=== PATIENT | male | born 1955 | race Caucasian/White ===

== ENCOUNTER 2017-10-30 11:37 | Inpatient (IN) ==
--- NOTE | 2017-10-30 11:52 | Emergency Department Note ---
Disposition Clinical Impression: CHF (congestive heart failure) Qualifiers: Heart failure type: unspecified Heart failure chronicity: unspecified Qualified Code(s): I50.9 - Heart failure, unspecified Acute kidney failure Qualifiers: Acute renal failure type: unspecified Qualified Code(s): N17.9 - Acute kidney failure, unspecified Disposition: Admitted As Inpatient Condition: Fair Time of Disposition: 14:09 General Adult HPI - General Chief complaint: ED Shortness of Breath/Dyspnea Stated complaint: Pulmonary Edema Time Seen by Provider: 10/30/17 11:43 Source: patient Mode of arrival: EMS Limitations: no limitations Nursing Notes Reviewed: Yes Vital Signs Reviewed: Yes - History of Present Illness HPI Narrative: 62-year-old male with history of diabetes, hypertension, CHF presents for evaluation of "fluid in his lungs". Patient states that he become increasing more fatigued and short of breath. Patient was evaluated [facility]. Patient also states that he was started back up on his Synthroid medications yesterday. Patient denies any chest pain. Patient denies any fevers or cough. Patient does note a proximally 20 pound weight gain over the past 24 hours. Notes lower leg swelling. Patient continues to urinate. Patient was transferred from the [facility] for further evaluation. Patient denies a history of stents. Patient states that when he was evaluated [facility] they told him that he had congestive heart failure but it was not that bad. - Related Data Home Medications Medication Instructions Recorded Confirmed Allopurinol [Zyloprim 100 MG] 200 mg PO DAILY 10/30/17 10/30/17 Amlodipine Besylate 10 mg PO DAILY 10/30/17 10/30/17 Carvedilol [Coreg] 6.25 mg PO BIDWM 10/30/17 10/30/17 Cholecalciferol (D-3) [Vitamin D] 5,000 unit PO DAILY 10/30/17 10/30/17 Clobetasol Propionate [Temovate] 1 appl TP SUSA 10/30/17 10/30/17 Colchicine [Mitigare] 0.6 mg PO BID 10/30/17 10/30/17 Doxycycline Hyclate 100 mg PO MOWEFR 10/30/17 10/30/17 Furosemide [Lasix] 20 mg PO BID 10/30/17 10/30/17 Furosemide [Lasix] 40 mg PO BID 10/30/17 10/30/17 Linagliptin [Tradjenta] 5 mg PO DAILY 10/30/17 10/30/17 Paroxetine HCl [Paxil] 40 mg PO DAILY 10/30/17 10/30/17 Rosuvastatin [Crestor] 20 mg PO HS 10/30/17 10/30/17 Tamsulosin [Flomax] 0.4 mg PO DAILY 10/30/17 10/30/17 Allergies Allergy/AdvReac Type Severity Reaction Status Date / Time No Known Allergies Allergy Verified 10/30/17 12:34 All systems ED: reviewed and negative except as stated. Constitutional: Denies: fever Cardiovascular: Denies: chest pain Respiratory: Reports: dyspnea. Denies: cough Gastrointestinal: Denies: abdominal pain, nausea, vomiting Past Medical History - Past Medical History Source: patient Physical Exam - General Limitations: no limitations General appearance: alert, in no apparent distress, obese - Head Head exam: atraumatic, normal inspection - Eye Eye exam: Present: normal appearance, EOMI - ENT ENT exam: normal exam, mucous membranes moist - Neck Neck exam: Present: normal inspection, trachea midline - Chest Chest inspection: Present: normal inspection, symmetric chest wall rise - Respiratory Respiratory exam: Present: other (diminished likely secondary to body habitus). Absent: respiratory distress - Cardiovascular Cardiovascular exam: Present: regular rate, normal rhythm. Absent: systolic murmur - Abdominal Exam Abdominal exam: Present: soft, Non-Tender - Extremities Exam Extremities exam: Present: normal inspection, pedal edema (2+) - Back Exam Back exam: Present: normal inspection. Absent: CVA tenderness (R), CVA tenderness (L) - Neurological Exam Neurological exam: Present: alert, oriented X3 - Skin Skin exam: Present: warm, dry, intact, normal color Course Course Narrative: Patient's records reviewed from the [facility]. At that facility the patient had a chest x-ray as well as basic labs. Those reviewed. Will add a TSH given the patient was restarted on her Synthroid. Disposition likely admission. Records from [facility] were also obtained and evaluated. Patient was offered admission at that facility however at that time the patient declined and felt comfortable with outpatient management however at this time the patient feels that he would like further evaluation and therapy as an inpatient. - Reevaluation(s) Reevaluation #1: Patient did receive 40 mg of Lasix IV at the [facility] prior to arrival. Time: 12:27 Vital Signs Temperature 97.8 F 10/30/17 11:43 Pulse Rate 68 10/30/17 11:43 Respiratory Rate 20 10/30/17 11:43 Blood Pressure 143/79 10/30/17 11:43 O2 Sat by Pulse Oximetry 94 10/30/17 11:43 Temperature 97.8 F 10/30/17 11:43 Pulse Rate 63 10/30/17 14:13 Respiratory Rate 20 10/30/17 12:51 Blood Pressure 170/84 10/30/17 14:13 O2 Sat by Pulse Oximetry 97 10/30/17 14:13 Oxygen Delivery Oxygen Delivery Nasal Cannula Medical Decision Making - MDM Narrative Medical decision making narrative: Patient seen and examined. Patient presents for concerns of increasing fatigue. Patient was evaluated multiple facilities prior to arrival concerns for pulmonary edema and congestive heart failure. Patient's chest x-ray was suggestive of possible pericardial effusion. Patient does not have any pericardial Physiology That Would Warrant Any Median Echo. Patient Would Benefit from Diuresis As Well As Echo and Continued Evaluation. Patient Does Not Have Any Infectious Symptoms. Pneumonia Is Less and antibioticts Were Not Initiated in the ED. Patient Also Does Not Clinically Have Any Pulmonary Embolism Risk Factors and Also Is Less Likely. Patient's BNP is not severe elevated however to be falsely low given the patient's bmi - Lab Data Lab results reviewed: Yes I reviewed the patient's lab results. Result diagrams: 10/30/17 12:49 10/30/17 12:49 Lab Results 10/30/17 10/30/17 10/30/17 Range/Units 12:49 12:49 12:49 WBC 8.7 (4.3-11.1) K/mcL RBC 5.20 (4.19-5.50) M/mcL Hgb 17.1 H (12.9-16.9) g/dL Hct 49.1 (37.5-50.1) % MCV 94.4 (83.0-100.0) fL MCH 32.9 (28.0-33.3) pg MCHC 34.8 (31.6-35.5) g/dL RDW 13.1 (11.5-14.5) % Plt Count 156 (140-400) K/mcL MPV 9.1 L (9.4-12.4) fL Immature Gran % 0.3 (0-4) % Seg Neutrophils % 80.8 % Lymphocytes % 8.7 % Monocytes % 6.5 % Eosinophils % 2.9 % Basophils % 0.8 % Neutrophils # 7.0 (1.6-8.9) K/mcL Lymphocytes # 0.8 (0.6-4.6) K/mcL Monocytes # 0.6 (0.0-1.3) K/mcL Eosinophils # 0.3 (0.0-0.6) K/mcL Basophils # 0.1 (0.0-0.2) K/mcL PT 11.2 (9.4-12.1) Seconds INR 1.0 APTT 34.8 (26.0-36.0) Seconds Sodium 137 (136-145) mEq/L Potassium 4.1 (3.5-5.1) mEq/L Chloride 97 L (98-107) mEq/L Carbon Dioxide 30 H (23-29) mEq/L BUN 27 H (8-23) mg/dL Creatinine 1.88 H (0.70-1.30) mg/dL Est GFR ( Amer) 45 L (> 60) Est GFR (Non-Af Amer) 37 L (> 60) BUN/Creatinine Ratio 14 (6-26) Glucose 127 H (70-105) mg/dL Calculated Osmolality 291 (280-300) Lactic Acid (0.5-2.2) mmol/L Calcium 9.9 (8.6-10.3) mg/dL Troponin I < 0.03 (< 0.04) ng/mL B-Natriuretic Peptide (Less than 100) pg/mL TSH 152.020 H (0.340-5.600) mcIU/mL 10/30/17 10/30/17 Range/Units 12:49 12:49 WBC (4.3-11.1) K/mcL RBC (4.19-5.50) M/mcL Hgb (12.9-16.9) g/dL Hct (37.5-50.1) % MCV (83.0-100.0) fL MCH (28.0-33.3) pg MCHC (31.6-35.5) g/dL RDW (11.5-14.5) % Plt Count (140-400) K/mcL MPV (9.4-12.4) fL Immature Gran % (0-4) % Seg Neutrophils % % Lymphocytes % % Monocytes % % Eosinophils % % Basophils % % Neutrophils # (1.6-8.9) K/mcL Lymphocytes # (0.6-4.6) K/mcL Monocytes # (0.0-1.3) K/mcL Eosinophils # (0.0-0.6) K/mcL Basophils # (0.0-0.2) K/mcL PT (9.4-12.1) Seconds INR APTT (26.0-36.0) Seconds Sodium (136-145) mEq/L Potassium (3.5-5.1) mEq/L Chloride (98-107) mEq/L Carbon Dioxide (23-29) mEq/L BUN (8-23) mg/dL Creatinine (0.70-1.30) mg/dL Est GFR ( Amer) (> 60) Est GFR (Non-Af Amer) (> 60) BUN/Creatinine Ratio (6-26) Glucose (70-105) mg/dL Calculated Osmolality (280-300) Lactic Acid 0.8 (0.5-2.2) mmol/L Calcium (8.6-10.3) mg/dL Troponin I (< 0.04) ng/mL B-Natriuretic Peptide 20 (Less than 100) pg/mL TSH (0.340-5.600) mcIU/mL - Radiology Data Radiology results reviewed: Yes I reviewed the patient's radiology results. Chest X-Ray 10/30/17 11:45 IMPRESSION: Enlarged cardiac/pericardial silhouette. Pericardial effusion cannot be excluded. Question of volume loss or infiltrate left lung base with some fluid in the left pleural space. PA and lateral chest or chest CT would prove helpful for further assessment. D/ / 10/30/2017 12:15:50 Azam Mccabe MD / kathleen Interpreting Provider: Azam Mccabe MD - EKG Data EKG #1 EKG attestation: Yes I reviewed and interpreted this EKG. EKG shows normal: sinus rhythm Rate: normal Rhythm: NSR Voltage: decreased voltage throughout Q waves: v2 Interpretation: no acute changes, nonspecific ST-T wave changes Ernesto - Ernesto Situation: Demographics Background: Presenting Complaint Assessment: Vital Signs, Course and respsone to treatment, Patient/Family Expectation Recommendation: Barrier(s) to disposition, Recommendation based on pending studies, treatments, or consults Ernesto Report Given to: Dr. Galen Orozco Repor Time: 14:09 Attestation Statement - Attestation Attestation: Patient was seen with resident physician. I reviewed the history, physical, assessment and plan, and agree with the findings. I also personally evaluated this patient and had [id number] time with this patient. 62-year-old male presents emergency Department chief complaint short of breath. Patient has history of same. Was seen at [facility] yesterday. Was offered admission but declined. Sitting rather get some testing as an outpatient. He has a history of CHF and that is what he was diagnosed with. His chores breath got worse today which [facility] evaluation they sent him here for further evaluation and treatment. Reports by EMS reports that the patient received possibly some Lasix, and had a negative troponin. Patient himself says he just feels more short of breath and says he is feels like he is moving slower than usual. She has also had some increased swelling in his lower extremities. Denies chest pain or abdominal pain. Review of systems as above remainder negative. Physical exam vital signs are stable. ENT is unremarkable. Heart regular rhythm and rate. Lungs I could not hear any crackles but there is more air movement on the right side than on the left side. No increased work of breathing. Abdomen is obese and nontender. Extremities swelling bilaterally and symmetrically in the lower extremities. Neurologically intact without focal deficits. Skin RASHES. Psych normal. ED course we will complete a workup for CHF. We will try and determine if the patient got the [facility] the [facility] or not. If not we will administer here. Anticipate we will be calling the hospitalist service to arrange for admission when she was initial workup is complete. Hemodynamically he remained stable while in the emergency department. Chest x-ray showed effusion with possible pericardial effusion as well. There was no medical signs of pericardial tamponade. There is no clinical signs of pneumonia at this time. Patient would benefit from additional workup as an inpatient. Hospitalist service was notified and agreed to accept the patient. Agree with resident physician assessment and plan.
[2017-10-30 13:03] LABS: Basophils # 0.1 K/mcL (0.0-0.2); Basophils % 0.8 %; Eosinophils # 0.3 K/mcL (0.0-0.6); Eosinophils % 2.9 %; Hematocrit 49.1 % (37.5-50.1); Hemoglobin 17.1 g/dL (12.9-16.9); Immature Granulocytes % 0.3 % (0-4); Lymphocytes # 0.8 K/mcL (0.6-4.6); Lymphocytes % 8.7 %; Mean Corpuscular HGB Conc 34.8 g/dL (31.6-35.5); Mean Corpuscular Hemoglobin 32.9 pg (28.0-33.3); Mean Corpuscular Volume 94.4 fL (83.0-100.0); Mean Platelet Volume 9.1 fL (9.4-12.4); Monocytes # 0.6 K/mcL (0.0-1.3); Monocytes % 6.5 %; Platelet Count 156 K/mcL (140-400); Red Cell Distribution Width 13.1 % (11.5-14.5); Segmented Neutrophils % 80.8 %
[2017-10-30 13:10] LABS: Prothrombin Time 11.2 Seconds (9.4-12.1)
[2017-10-30 13:12] LABS: Activated Partial Thrombo Time 34.8 Seconds (26.0-36.0)
[2017-10-30 13:32] LABS: BUN/Creatinine Ratio 14 (6-26); Blood Urea Nitrogen 27 mg/dL (8-23); Calcium 9.9 mg/dL (8.6-10.3); Carbon Dioxide 30 mEq/L (23-29); Chloride 97 mEq/L (98-107); Glucose 127 mg/dL (70-105); Osmolality,Calculated 291 (280-300); Potassium 4.1 mEq/L (3.5-5.1); Sodium 137 mEq/L (136-145); Troponin I < 0.03 ng/mL (< 0.04); eGFR For Non-African Americans 37 (> 60)
--- NOTE | 2017-10-30 17:13 | Internal Med History&Physical ---
Date of Encounter: 10/30/17 Time of Encounter: 14:00 Internal Medicine - H&P: HPI Chief complaint: shortness of breath Admitted From: Hospital to Hospital Transfer Plans for Post Hospital Care: Home History of present illness: Patient is a 62-year-old male with past medical history significant for CHF, CKD stage III, hypertension, diabetes, hypothyroid and mood disorder who presents as a transfer from the [facility] to [facility] ER on 10/30/17 due to her failure and uncontrolled hypothyroidism. Patient reports that he presented to the [facility] due to shortness of breath with exertion and weight gain in addition to bilateral lower extremity swelling. Patient reports also of feeling fatigue with slow mentation and decided to go to the ER for evaluation. At [facility] ER, patient was found to have BNP of 152 and a TSH of 152. Patient was also found to have a creatinine of 1.88 with a GFR 37. CXR shows questionable pericardial effusion. Patient will be admitted to medical surgical floor for heart failure exacerbation and uncontrolled hypothyroid. Past Med Surg Social Fam HX - Past Medical History Medical history: cancer, CHF, coronary artery disease, diabetes, hyperlipidemia , hypertension, renal disease, thyroid disease, other Additional medical history: Thyroid Cancer. Sleep apnea Psychiatric history: PTSD - Social History Smoking Status: Never smoker Alcohol use: heavy Drug use: none - Family History Mother Hx Family Cardiac Disorders: Yes Internal Medicine - H&P: Meds Allopurinol [Zyloprim 100 MG] 200 mg PO DAILY 10/30/17 [History] Amlodipine Besylate 10 mg PO DAILY 10/30/17 [History] Carvedilol [Coreg] 6.25 mg PO BIDWM 10/30/17 [History] Cholecalciferol (D-3) [Vitamin D] 5,000 unit PO DAILY 10/30/17 [History] Clobetasol Propionate [Temovate] 1 appl TP SUSA 10/30/17 [History] Colchicine [Mitigare] 0.6 mg PO BID 10/30/17 [History] Doxycycline Hyclate 100 mg PO MOWEFR 10/30/17 [History] Furosemide [Lasix] 20 mg PO BID 10/30/17 [History] Furosemide [Lasix] 40 mg PO BID 10/30/17 [History] Linagliptin [Tradjenta] 5 mg PO DAILY 10/30/17 [History] Paroxetine HCl [Paxil] 40 mg PO DAILY 10/30/17 [History] Rosuvastatin [Crestor] 20 mg PO HS 10/30/17 [History] Tamsulosin [Flomax] 0.4 mg PO DAILY 10/30/17 [History] 3 Allergy/AdvReac Type Severity Reaction Status Date / Time No Known Allergies Allergy Verified 10/30/17 12:34 All Systems PM: A 10-system review of systems was performed and is negative for pertinent findings except as documented above in the HPI. - Constitutional Vitals: Temp Pulse Resp BP Pulse Ox 97.4 F L 68 16 149/75 94 10/30/17 15:15 10/30/17 15:15 10/30/17 15:15 10/30/17 15:15 10/30/17 15:30 General appearance: Present: A&O X 3, no acute distress - Eye Eye exam: Present: normal appearance - ENT ENT exam: Present: mucous membranes moist - Respiratory Respiratory exam: Present: CTAB. Absent: accessory muscle use, rales, rhonchi, wheezes - Cardiovascular Cardiovascular exam: Present: RRR, +S1, +S2. Absent: diastolic murmur, gallop, rubs, systolic murmur - GI/Abdominal GI/Abdominal exam: Present: normal bowel sounds, soft, no peritoneal signs. Absent: distended, tenderness - Extremities Exam Extremities exam: Absent: pedal edema - Neurological Exam Neurological exam: Present: CN II-XII intact, oriented X3, no focal deficits. Absent: pronater drift, facial droop, speech deficit - Psychiatric Psychiatric exam: Present: normal mood - Skin Skin exam: Present: normal color Internal Med - H&P Results - Labs CBC & Chem 7: 10/30/17 12:49 10/30/17 12:49 - Assessment and plan (1) CHF (congestive heart failure) Current Visit: Yes Status: Acute Assessment and plan: At [facility] ER, patient was found to have BNP of 152 and CXR shows questionable pericardial effusion. Will order echocardiogram. Will also start patient on IV Lasix 80 mg twice daily Cardiology consulted and appreciate any additional recommendations Qualifiers: Heart failure type: unspecified Heart failure chronicity: unspecified Qualified Code(s): I50.9 - Heart failure, unspecified (2) Hypothyroid Current Visit: Yes Status: Acute Assessment and plan: At [facility] ER, patient was found to have a TSH of 152. Patient reports that his Synthroid was discontinued due to receiving radiation therapy for history of thyroid cancer Will restart patient on Synthroid. Qualifiers: Hypothyroidism type: unspecified Qualified Code(s): E03.9 - Hypothyroidism , unspecified (3) Acute renal failure Current Visit: Yes Status: Acute Assessment and plan: Patient also found to have an elevated creatinine of 1.88 and GFR 37 Patient does report of being diagnosis with CKD stage 3; no records for baseline creatinine Will continue to monitor with IV diuresis Qualifiers: Acute renal failure type: unspecified Qualified Code(s): N17.9 - Acute kidney failure, unspecified (4) EtOH dependence Current Visit: Yes Status: Acute Assessment and plan: Patient reports of drinking approximately a 6 pack per day Qualifiers: Complication of substance-induced condition: uncomplicated Qualified Code(s ): F10.220 - Alcohol dependence with intoxication, uncomplicated (5) Diabetes Current Visit: Yes Status: Acute Assessment and plan: Will obtain A1c; coverage with sliding-scale Qualifiers: Chronic kidney disease stage: unspecified stage Qualified Code(s): E08.22 - Diabetes mellitus due to underlying condition with diabetic chronic kidney disease; 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
[2017-10-30] MEDS ORDERED: Naloxone 0.4 MG/ML INJ IVP PRN (17:37)
[2017-10-30] MEDS: Furosemide 80 MG in 0.9 % Sodium Chloride 50 ML IVPB SCH (21:17)
[2017-10-30] MEDS: Colchicine 0.6 MG TABLET PO SCH (21:17)
[2017-10-30] MEDS: CLOBETASOL PROPIONATE 15 GM TUBE TP SCH (22:44)
[2017-10-30 23:33] LABS: Estimated Average Glucose 151 mg/dl; Hemoglobin A1C 6.9 %
[2017-10-31 04:30] LABS: Basophils # 0.1 K/mcL (0.0-0.2); Basophils % 0.6 %; Eosinophils # 0.2 K/mcL (0.0-0.6); Eosinophils % 2.2 %; Hematocrit 45.1 % (37.5-50.1); Hemoglobin 15.1 g/dL (12.9-16.9); Immature Granulocytes % 0.7 % (0-4); Immature Platelets 1.9 % (1.1-6.1); Lymphocytes # 0.7 K/mcL (0.6-4.6); Lymphocytes % 7.8 %; Mean Corpuscular HGB Conc 33.5 g/dL (31.6-35.5); Mean Corpuscular Hemoglobin 31.7 pg (28.0-33.3); Mean Corpuscular Volume 94.5 fL (83.0-100.0); Mean Platelet Volume 9.5 fL (9.4-12.4); Monocytes # 0.7 K/mcL (0.0-1.3); Monocytes % 8.1 %; Platelet Count 171 K/mcL (140-400); Red Blood Count 4.77 M/mcL (4.19-5.50); Red Cell Distribution Width 13.2 % (11.5-14.5); Segmented Neutrophils % 80.6 %
[2017-10-31 04:56] LABS: Calcium 9.4 mg/dL (8.6-10.3); Chol/HDL Ratio 2.2 (0-4.9); Potassium 4.4 mEq/L (3.5-5.1)
[2017-10-31] MEDS: Cholecalciferol (D-3) 1,000 UNIT TABLET PO SCH (08:19)
[2017-10-31] MEDS: Colchicine 0.6 MG TABLET PO SCH ×2 (08:20→20:21)
[2017-10-31] MEDS: amLODIPine 5 MG TABLET PO SCH (08:20)
--- NOTE | 2017-10-31 09:31 | Internal Med Progress Note ---
Hospitalist Progress Note - Encounter Date of Encounter: 10/31/17 Time of Encounter: 09:00 - Subjective Interval History: Called to bedside this morning by nurse for concerns that patient is having a CVA. Upon arrival at the bedside, patient appeared to have slow cognition and initially was not following commands. However during neurological exam, no neurological deficits noted and patient without any bilateral upper or lower extremity weakness and patient was able to follow commands. Patient however did not communicate much. There is no documented last well known time. He was found to have a TSH on admission of 152. Will order head CT for initiation of CVA rule out followed by MRI. - Exam Vitals: Temp Pulse Resp BP Pulse Ox 97.6 F 74 16 151/82 91 10/31/17 07:59 10/31/17 07:59 10/31/17 07:59 10/31/17 07:59 10/31/17 07:59 Exam: Gen.: Nonacute distress, alert and oriented 3 ENT: Mucosal membranes moist Respiratory: Lungs are clear to auscultation bilaterally without any wheezing rhonchi or rales Cardiovascular: Normal S1 and S2 regular rate rhythm no murmurs rubs or gallops Abdomen: Soft, nontender and nondistended with positive bowel sounds Extremities: Patient with bilateral lower extremity edema with pitting Skin: Normal color Neurological exam: Patient with slow speech and mentation but does have elevated TSH Cranial nerves 2 through 12 grossly intact Patient without any bilateral upper or lower extremity weakness and sensation intact Patient able to stand with assistance - Assessment and Plan (1) CHF (congestive heart failure) Current Visit: Yes Status: Acute Assessment and Plan: At [facility] ER, patient was found to have BNP of 20 but has a BMI of 60 and CXR shows questionable pericardial effusion. Patient with bilateral lower extremity edema and reports a significant weight gain. Will order echocardiogram. Will continue IV Lasix 80 mg twice daily until echocardiogram results known Cardiology consulted and appreciate any additional recommendations (2) Hypothyroid Current Visit: Yes Status: Acute Assessment and Plan: At [facility] ER, patient was found to have a TSH of 152. Patient reports that his Synthroid was discontinued due to receiving radiation therapy for history of thyroid cancer Will continue Synthroid 125 g daily (3) Acute renal failure Current Visit: Yes Status: Acute Assessment and Plan: Patient also found to have an elevated creatinine: 1.88->1.96 Patient does report of being diagnosis with CKD stage 3; no records for baseline creatinine Will continue to monitor with IV diuresis (4) EtOH dependence Current Visit: Yes Status: Acute Assessment and Plan: Patient reports of drinking approximately a 6 pack per day (5) Diabetes Current Visit: Yes Status: Acute Assessment and Plan: Will obtain A1c; coverage with sliding-scale (6) Mood disorder Current Visit: Yes Status: Acute Assessment and Plan: Continue home medications (7) DVT prophylaxis Current Visit: Yes Status: Acute Assessment and Plan: Lovenox subcutaneous - Time Spent with Patient Total time spent is greater than 50% in coordination of care (as documented) at patient's floor/unit and/or counseling patient: Internal Medicine: Result - Labs CBC & Chem 7: 10/31/17 03:53 10/31/17 03:53 Labs: Short CBC 10/31/17 Range/Units 03:53 WBC 8.6 (4.3-11.1) K/mcL Hgb 15.1 D (12.9-16.9) g/dL Hct 45.1 (37.5-50.1) % Plt Count 171 (140-400) K/mcL Neutrophils # 7.0 (1.6-8.9) K/mcL BMP 10/31/17 03:53 Sodium 136 Potassium 4.4 Chloride 97 L Carbon Dioxide 32 H BUN 28 H Creatinine 1.96 H Glucose 163 H Calcium 9.4 - ABG Interpretation ABG results: PT/INR, D-dimer PT 11.2 Seconds (9.4-12.1) 10/30/17 12:49 - Impressions Impressions Head CT 10/31/17 08:43 IMPRESSION: No acute intracranial abnormality. D/ / Deven Walls MD / Deven Walls MD Interpreting Provider: Deven Walls MD Consult Discharge Plan - Plan Referrals: Romeo Ansari [Primary Care Provider] - (1) CHF (congestive heart failure) Qualifiers: Heart failure type: unspecified Heart failure chronicity: unspecified Qualified Code(s): I50.9 - Heart failure, unspecified (2) Hypothyroid Qualifiers: Hypothyroidism type: unspecified Qualified Code(s): E03.9 - Hypothyroidism, unspecified (3) Acute renal failure Qualifiers: Acute renal failure type: unspecified Qualified Code(s): N17.9 - Acute kidney failure, unspecified (4) EtOH dependence Qualifiers: Complication of substance-induced condition: uncomplicated (5) Diabetes Qualifiers: Chronic kidney disease stage: unspecified stage
[2017-10-31] MEDS: Furosemide 80 MG in 0.9 % Sodium Chloride 50 ML IVPB SCH ×2 (10:10→20:19)
[2017-10-31] MEDS: *HR* Enoxaparin 40 MG/0.4 ML SYRINGE SQ SCH (10:42)
--- NOTE | 2017-10-31 11:31 | Cardiology Consult Note ---
<Figueroa Conley - Last Filed: 10/31/17 11:32> Date of Encounter: 10/31/17 Time of Encounter: 11:30 Assessment and Plan (1) Thyroid cancer Current Visit: Yes Status: Chronic Per Cardiology: Per patient history of thyroid cancer and recently completed radiation treatments last week. TSH in the 150s. Further management per primary service. (2) SOB (shortness of breath) Current Visit: Yes Status: Chronic Per Cardiology: Patient with reported history of CHF, however no previous records available for review. Current echo pending. BNP only noted to be 20. Chest x-ray showed: IMPRESSION: Enlarged cardiac/pericardial silhouette. Pericardial effusion cannot be excluded. Question of volume loss or infiltrate left lung base with some fluid in the left pleural space. PA and lateral chest or chest CT would prove helpful for further assessment. Suspect multifactorial causes. On Lasix drip per primary service. Clinically reports improvement. I&O +58ml. Will initiate strict I&O, daily weights, 2 L fluid restriction. Further recommendations pending echo. (3) Renal insufficiency Current Visit: Yes Status: Acute Per Cardiology: Chronic COPD versus acute kidney injury. Previous baseline kidney function unknown area and monitored closely with diuresis. Consider nephrology consult if warranted. (4) Dizziness Current Visit: Yes Status: Acute Per Cardiology: Telemetry reviewed with no events noted, sinus rhythm. Head CT showed: IMPRESSION: No acute intracranial abnormality. Discussion w patient/family: The assessment and plan as outlined above was discussed with the patient who expressed understanding and agreement. All questions were answered. Thank you for involving us in the care of your patient. Please call with any questions. History of Present Illness Consult date: 10/31/17 Requesting physician: Dat Shipley Consult reason: SOB Chief complaint: SOB History of present illness: Previous medical records reviewed-- no prior medical records noted. "Patient is a 62-year-old male with past medical history significant for CHF, CKD stage III, hypertension, diabetes, hypothyroid and mood disorder who presents as a transfer [place] the [place] to [facility] ER on 10/30/17 due to her failure and uncontrolled hypothyroidism. Patient reports that he presented to the [place] due to shortness of breath with exertion and weight gain in addition to bilateral lower extremity swelling. Patient reports also of feeling fatigue with slow mentation and decided to go to the ER for evaluation. At [facility] ER, patient was found to have BNP of 152 and a TSH of 152. Patient was also found to have a creatinine of 1.88 with a GFR 37. CXR shows questionable pericardial effusion". Cardiology consult for shortness of breath and concerns of CHF. Patient reports has expressed generalized lower extremity swelling and edema for many years. Reports short of breath at rest and exertion over the past one year. He reports past day or so short of breath has worsened so he was seen in the ER at [facility]. He reports given option of admission or outpatient follow-up. He did not get admitted. [facility]and transferred to [place]. He reports short of breath has improved during stay. He denies any chest pain or palpitations. Reports recently completed last round of radiation about one week ago for thyroid cancer. He denies any past history of CAD reports heart catheterization about one year ago at [facility] with no stenting. He does report history of CHF. Denies any pacemaker or ICD. He denies any active bleeding or blood loss. He also reports had some episodes of dizziness with difficulty "thinking". Denies any other concerns or complaints today. Past Med Surg Social Fam HX - Past Medical History Medical history: cancer, CHF, coronary artery disease, diabetes, hyperlipidemia , hypertension, renal disease, thyroid disease, other Additional medical history: Thyroid Cancer. Sleep apnea Psychiatric history: PTSD - Social History Smoking Status: Never smoker Alcohol use: heavy Drug use: none - Family History Mother Hx Family Cardiac Disorders: Yes Medications and Allergies Allopurinol [Zyloprim 100 MG] 200 mg PO DAILY 10/30/17 [History] Amlodipine Besylate 10 mg PO DAILY 10/30/17 [History] Carvedilol [Coreg] 6.25 mg PO BIDWM 10/30/17 [History] Cholecalciferol (D-3) [Vitamin D] 5,000 unit PO DAILY 10/30/17 [History] Clobetasol Propionate [Temovate] 1 appl TP SUSA 10/30/17 [History] Colchicine [Mitigare] 0.6 mg PO BID 10/30/17 [History] Doxycycline Hyclate 100 mg PO MOWEFR 10/30/17 [History] Furosemide [Lasix] 20 mg PO BID 10/30/17 [History] Furosemide [Lasix] 40 mg PO BID 10/30/17 [History] Linagliptin [Tradjenta] 5 mg PO DAILY 10/30/17 [History] Paroxetine HCl [Paxil] 40 mg PO DAILY 10/30/17 [History] Rosuvastatin [Crestor] 20 mg PO HS 10/30/17 [History] Tamsulosin [Flomax] 0.4 mg PO DAILY 10/30/17 [History] 3 Allergy/AdvReac Type Severity Reaction Status Date / Time No Known Allergies Allergy Verified 10/30/17 12:34 All Systems Review: The remainder of the systems were reviewed and are negative - Constitutional Constitutional: fatigue - Cardiovascular Cardiovascular: as per HPI, dyspnea at rest, dyspnea on exertion, leg edema - Neurological Neurological: dizziness Physical Examination Vital Signs, Last 4 Hours Temp Pulse Resp BP Pulse Ox 10/31/17 08:20 91 10/31/17 07:59 97.6 F 74 16 151/82 91 General: Conversant, No Apparent Distress HEENT: Atraumatic, Normocephaly, Mucus Membranes Moist Neck: No JVD, Normal carotid pulses Cardiac: Reg Rate and Rhythm, Normal S1 and S2, No Murmur Lungs: Normal Breath Sounds, No Wheeze, Rales, Rhonchi, Other (diminshed throughout) Neuro: Alert and responsive, No focal deficits noted Abdomen: Soft, Non-Tender, Other (morbidly obese) Skin: No rashes noted on visualized skin Musculoskeletal: No Chest Wall Tenderness Extremities: No Clubbing, No Cyanosis, Normal Pulses, Other (+3 generalized LE edema) Results 10/31/17 03:53 10/31/17 03:53 Lab Results Laboratory Tests 10/30/17 10/30/17 10/30/17 12:49 12:49 12:49 INR 1.0 Creatinine Est GFR (Non-Af Amer) Hemoglobin A1c Troponin I < 0.03 B-Natriuretic Peptide 20 LDL Cholesterol, Calc TSH 152.020 H 10/30/17 10/31/17 17:41 03:53 INR Creatinine 1.96 H Est GFR (Non-Af Amer) 35 L Hemoglobin A1c 6.9 H Troponin I B-Natriuretic Peptide LDL Cholesterol, Calc 51 TSH ITS Impressions Chest X-Ray 10/30/17 11:45 IMPRESSION: Enlarged cardiac/pericardial silhouette. Pericardial effusion cannot be excluded. Question of volume loss or infiltrate left lung base with some fluid in the left pleural space. PA and lateral chest or chest CT would prove helpful for further assessment. D/ / 10/30/2017 12:15:50 Azam Mccabe MD / kathleen Interpreting Provider: Azam Mccabe MD Head CT 10/31/17 08:43 IMPRESSION: No acute intracranial abnormality. D/ / Deven Walls MD / Deven Walls MD Interpreting Provider: Deven Walls MD Active Medications Allopurinol (Zyloprim) 200 mg PO DAILY [facility] Stop: 05/02/18 09:01 Last Admin: 10/31/17 08:19 Dose: 200 mg Amlodipine Besylate (Norvasc) 10 mg PO DAILY [facility] Stop: 05/02/18 09:01 Last Admin: 10/31/17 08:20 Dose: 10 mg Carvedilol (Coreg) 6.25 mg PO BIDWM [facility] PRN Reason: Protocol Stop: 05/02/18 08:01 Last Admin: 10/31/17 08:20 Dose: 6.25 mg Clobetasol Propionate (Temovate 0.05%) 1 appl TP SUSA [facility] Stop: 05/01/18 17:46 Last Admin: 10/30/17 22:44 Dose: Not Given Colchicine (Colcrys) 0.6 mg PO BID [facility] Stop: 05/01/18 21:01 Last Admin: 10/31/17 08:20 Dose: 0.6 mg Enoxaparin Sodium (Lovenox) 40 mg SQ 0600 [facility] PRN Reason: Protocol Stop: 05/02/18 10:31 Last Admin: 10/31/17 10:42 Dose: 40 mg Furosemide 80 mg/ Sodium (Chloride) 58 mls @ 100 mls/hr IVPB BID [facility] Stop: 05/01/18 21:01 Last Admin: 10/31/17 10:10 Dose: 100 mls/hr Levothyroxine Sodium (Synthroid) 125 mcg PO DAILY@0630 [facility] Stop: 05/02/18 06:31 Last Admin: 10/31/17 05:50 Dose: 125 mcg Naloxone HCl (Narcan) 0.4 mg IVP Q2MIN PRN PRN Reason: SEE COMMENTS Stop: 05/01/18 17:38 Paroxetine HCl (Paxil) 40 mg PO DAILY [facility] Stop: 05/02/18 09:01 Last Admin: 10/31/17 08:19 Dose: 40 mg Pharmacy Profile Note (Patient Taking Own Medication) 5 each PO DAILY [facility] Stop: 05/02/18 09:01 Last Admin: 10/31/17 08:24 Dose: Not Given Rosuvastatin Calcium (Crestor) 20 mg PO HS [facility] Stop: 05/01/18 21:01 Last Admin: 10/30/17 21:17 Dose: 20 mg Tamsulosin HCl (Flomax) 0.4 mg PO DAILY [facility] PRN Reason: Protocol Stop: 05/02/18 09:01 Last Admin: 10/31/17 08:20 Dose: 0.4 mg Vitamin D (Vitamin D) 5,000 unit PO DAILY [facility] Stop: 05/02/18 09:01 Last Admin: 10/31/17 08:19 Dose: 5,000 unit - Imaging and Cardiology Chest Xray: report reviewed Echo: pending - EKG Interpretation EKG results cardiology: personally reviewed, normal ECG, sinus rhythm, no diagnostic ischemia, other Consult Discharge Plan - Plan Referrals: Romeo Ansari [Primary Care Provider] - <Kris Rios - Last Filed: 10/31/17 18:38> Date of Encounter: 10/31/17 Time of Encounter: 17:00 - Attending Attestation I have personally performed a face to face evaluation on this patient. I have reviewed and agree with the care plan. History and Exam by me shows: CC: shortness of breath, lower extremity swelling HPI: Pt transferred to [place] from [place] with complaints of increased shortness of breath and increasing lower extremity swelling. HE was evaluated at the [place] and found to have increased cardiac size on CXR, normal BNP and worsening renal failure. He was also found to have elevated TSH consistent with hypothyroidism. He denies chest pain, tightness, pressure or palpitations. He is recovering from recent radiation for thyroid cancer. He has non-specific hx of CHF, unclear etiology, reportedly normal coronary arteries at [facility] 2017. He also reports increased shortness of breath at rest and with exertion over last several weeks. j ROS: reviewed PMH: reviewed PE: pt seen and examined, agree with findings as documented. IMP/Plan: 1. Abnomal CXR, enlarged cardiac size, reviewed echo, has mild to moderate pericardial effusion, no tamponade, most consistent with hypothyroidism, defer replacement to primary care team. 2. CHF: unclear etiology, but may also be due to hypothyroidism, recent left heart cath did not show significant CAD, according to patient, old records requested. BNP is basically not pertinent at 152. 3. Thyroid cancer, completing radiation tx. 4. Pericardial effusion: moderate, no tamponade, significant enough to contribute to SOB, agree with diuresis while carefully monitorig blood pressure , continue to monitor, Assessment and Plan Discussion w patient/family: The assessment and plan as outlined above was discussed with the patient and/or family members who expressed understanding and agreement. All questions were answered. Thank you for involving us in the care of your patient. Please call with any questions. History of Present Illness History of present illness: Mr. Sinclair is a 62 year old male All Systems Review: The remainder of the systems were reviewed and are negative Physical Examination Vital Signs, Last 4 Hours Temp Pulse Resp BP Pulse Ox 10/31/17 16:36 97.6 F 75 16 136/73 90 Results 10/31/17 03:53 10/31/17 03:53 Lab Results 10/31/17 10/31/17 03:53 03:53 WBC 8.6 Hgb 15.1 D Hct 45.1 Plt Count 171 Sodium 136 Potassium 4.4 Chloride 97 L Carbon Dioxide 32 H BUN 28 H Creatinine 1.96 H Glucose 163 H Calcium 9.4
[2017-10-31] MEDS ORDERED: *HR* LORazepam 2 MG/ML VIAL ONE (13:56)
[2017-10-31] MEDS ORDERED: *HR* LORazepam 2 MG/ML VIAL IVP ONE (14:44)
[2017-10-31] MEDS: CLOBETASOL PROPIONATE 15 GM TUBE TP SCH (16:55)
[2017-10-31] MEDS ORDERED: *HR* Dextrose 50 % in Water (Syg) 50 ML SYRINGE IVP PRN (17:14)
[2017-10-31] MEDS ORDERED: Dextrose Gel 15 GM/37.5 ML TUBE PO PRN ×2 (17:14)
[2017-10-31] MEDS ORDERED: D5% in Water 1,000 ML IVC PRN (17:14)
[2017-10-31] MEDS: Insulin LISPRO 300 UNITS/3 ML VIAL SQ SCH (21:06)
[2017-11-01] MEDS: *HR* Enoxaparin 40 MG/0.4 ML SYRINGE SQ SCH (05:32)
[2017-11-01] MEDS: Colchicine 0.6 MG TABLET PO SCH ×2 (08:13→20:54)
[2017-11-01] MEDS: amLODIPine 5 MG TABLET PO SCH (08:13)
[2017-11-01] MEDS: Cholecalciferol (D-3) 1,000 UNIT TABLET PO SCH (08:13)
[2017-11-01] MEDS: Insulin LISPRO 300 UNITS/3 ML VIAL SQ SCH ×4 (08:13→20:56)
--- NOTE | 2017-11-01 09:24 | Cardiology Progress Note ---
Date of Encounter: 11/01/17 Time of Encounter: 09:25 Assessment and Plan (1) Thyroid cancer Current Visit: Yes Status: Chronic Per Cardiology: Per patient history of thyroid cancer and recently completed radiation treatments last week. TSH in the 150s. Further management per primary service. (2) SOB (shortness of breath) Current Visit: Yes Status: Chronic Per Cardiology: Patient with reported history of CHF, however no previous records available for review. BNP only noted to be 20. Chest x-ray showed: IMPRESSION: Enlarged cardiac/pericardial silhouette. Pericardial effusion cannot be excluded. Question of volume loss or infiltrate left lung base with some fluid in the left pleural space. PA and lateral chest or chest CT would prove helpful for further assessment. Suspect multifactorial causes. On Lasix per primary service (correction, patient is not on Lasix drip and appears to be on Lasix IV piggyback twice a day ). Clinically reports improvement. I&O +116ml?. On strict I&O, daily weights, 2 L fluid restriction. ECHO: Impressions: Technically sub-optimal due to body habitus. Many LV segments were not well visualized. In some views, LVEF appeared to be low normal. Grossly, there appeared to be concentric left ventricular hypertrophy. Mild left ventricular diastolic dysfunction. Right ventricle was not well visualized. Normal function noted by tissue Doppler analysis. No pulmonary hypertension identified. RVSP not well obtained due to poor TR jet. Grossly, there appeared to be a moderate pericardial effusion present, largest along the inferolateral segments of the LV. No obvious findings of tamponade noted. Consider a repeat study with Definity contrast for better assessment of LV function. We will repeat echo with Definity. Moderate pericardial effusion with no evidence tamponade. Discussed with primary service. (3) Renal insufficiency Current Visit: Yes Status: Acute Per Cardiology: Chronic CKD versus acute kidney injury. Previous baseline kidney function unknown area and monitored closely with diuresis. Kidney function worsening. Recommend nephrology consult. Again, unknown if history of CKD versus NICK. We will decrease Lasix to IV 40 mg twice a day. (4) Dizziness Current Visit: Yes Status: Acute Per Cardiology: Telemetry reviewed with no events noted, sinus rhythm. Head CT showed: IMPRESSION: No acute intracranial abnormality. Discussion w patient/family: The assessment and plan as outlined above was discussed with the patient who expressed understanding and agreement. All questions were answered. Thank you for involving us in the care of your patient. Please call with any questions. Subjective Principal diagnosis: SOB Interval history: Patient reports short of breath and bilateral lower extremity swelling have improved during hospital stay. Objective Vital Signs, Last 4 Hours Temp Pulse Resp BP Pulse Ox 11/01/17 07:52 98.1 F 68 19 132/85 92 General: Conversant, No Apparent Distress HEENT: Atraumatic, Normocephaly, Mucus Membranes Moist Neck: No JVD, Normal carotid pulses Cardiac: Reg Rate and Rhythm, Normal S1 and S2, No Murmur Lungs: Normal Breath Sounds, No Wheeze, Rales, Rhonchi Neuro: Alert and responsive, No focal deficits noted Abdomen: Soft, Non-Tender Skin: No rashes noted on visualized skin Musculoskeletal: No Chest Wall Tenderness Extremities: No Clubbing, No Cyanosis, Normal Pulses, Other (generalized +2-3 pitting abbey phi bilateral LE) Results 11/01/17 10:27 11/01/17 10:27 Laboratory Tests 11/01/17 10:27 Creatinine 2.48 H Est GFR (Non-Af Amer) 27 L Impressions Brain MRI 10/31/17 10:16 IMPRESSION: Motion degraded study. No acute infarct. Mild chronic microvascular ischemic disease. D/ 10/31/2017 15:03:08 Bubba Sena MD / gerson Interpreting Provider: Bubba Sena MD Intake & Output 10/29/17 10/30/17 10/31/17 11/01/17 23:59 23:59 23:59 23:59 Intake Total 58 / 58 116 / 116 480 / 480 Balance 58 / 58 116 / 116 480 / 480 Weight 149.685 kg 148.5 kg Active Medications Allopurinol (Zyloprim) 200 mg PO DAILY MISHEL Stop: 05/02/18 09:01 Last Admin: 11/01/17 08:13 Dose: 200 mg Amlodipine Besylate (Norvasc) 10 mg PO DAILY MISHEL Stop: 05/02/18 09:01 Last Admin: 11/01/17 08:13 Dose: 10 mg Carvedilol (Coreg) 12.5 mg PO BIDWM [facility] PRN Reason: Protocol Stop: 05/02/18 17:01 Last Admin: 11/01/17 08:13 Dose: 12.5 mg Clobetasol Propionate (Temovate 0.05%) 1 appl TP [facility] Stop: 05/01/18 17:46 Last Admin: 10/31/17 16:55 Dose: Not Given Colchicine (Colcrys) 0.6 mg PO BID [facility] Stop: 05/01/18 21:01 Last Admin: 11/01/17 08:13 Dose: 0.6 mg Dextrose/Water (Dextrose 50% (Syg)) 25 ml IVP AD PRN PRN Reason: Hypoglycemia Stop: 05/02/18 17:15 Enoxaparin Sodium (Lovenox) 40 mg SQ 0600 [facility] PRN Reason: Protocol Stop: 05/02/18 10:31 Last Admin: 11/01/17 05:32 Dose: 40 mg Glucagon (Glucagen) 1 mg IM ONCE PRN PRN Reason: Hypoglycemia Stop: 05/02/18 17:15 Glucose (Gluctose) 15 gm PO ONCE PRN PRN Reason: Hypoglycemia Stop: 05/02/18 17:15 Glucose (Gluctose) 30 gm PO ONCE PRN PRN Reason: Hypoglycemia Stop: 05/02/18 17:15 Furosemide 80 mg/ Sodium (Chloride) 58 mls @ 100 mls/hr IVPB BID [facility] Stop: 05/01/18 21:01 Last Admin: 11/01/17 09:29 Dose: 100 mls/hr Dextrose (Dextrose 5%) 1,000 mls @ 100 mls/hr IVC .Q10H PRN PRN Reason: HYPOGLYCEMIA Stop: 05/02/18 17:15 Insulin Human Lispro (Humalog) 0 units SQ HS [facility] PRN Reason: Protocol Stop: 05/02/18 21:01 Last Admin: 10/31/17 21:06 Dose: Not Given Insulin Human Lispro (Humalog) 0 units SQ TIDAC [facility] PRN Reason: Protocol Stop: 05/03/18 07:31 Last Admin: 11/01/17 12:27 Dose: 4 units Levothyroxine Sodium (Synthroid) 125 mcg PO DAILY@0630 [facility] Stop: 05/02/18 06:31 Last Admin: 11/01/17 05:32 Dose: 125 mcg Naloxone HCl (Narcan) 0.4 mg IVP Q2MIN PRN PRN Reason: SEE COMMENTS Stop: 05/01/18 17:38 Paroxetine HCl (Paxil) 40 mg PO DAILY [facility] Stop: 05/02/18 09:01 Last Admin: 11/01/17 08:13 Dose: 40 mg Pharmacy Profile Note (Patient Taking Own Medication) 5 each PO DAILY [facility] Stop: 05/02/18 09:01 Last Admin: 11/01/17 08:13 Dose: Not Given Rosuvastatin Calcium (Crestor) 20 mg PO HS [facility] Stop: 05/01/18 21:01 Last Admin: 10/31/17 20:22 Dose: 20 mg Tamsulosin HCl (Flomax) 0.4 mg PO DAILY [facility] PRN Reason: Protocol Stop: 05/02/18 09:01 Last Admin: 11/01/17 08:12 Dose: 0.4 mg Vitamin D (Vitamin D) 5,000 unit PO DAILY [facility] Stop: 05/02/18 09:01 Last Admin: 11/01/17 08:13 Dose: 5,000 unit - Imaging and Cardiology Echo: pending, report reviewed Consult Discharge Plan - Plan Referrals: Romeo Ansari [Primary Care Provider] - 11/16/17 2:45 pm
[2017-11-01] MEDS: Furosemide 80 MG in 0.9 % Sodium Chloride 50 ML IVPB SCH (09:29)
--- NOTE | 2017-11-01 09:59 | Internal Med Progress Note ---
Hospitalist Progress Note - Encounter Date of Encounter: 11/01/17 Time of Encounter: 11:00 - Subjective Interval History: Patient presents with uncontrolled hypothyroidism with TSH of 152 also found to have moderate pericardial effusion. Cardiology following with recommendations to monitor pericardial effusion overnight. Rug Repairer to be consulted on 11/02/17 any additional recommendations. - Exam Vitals: Temp Pulse Resp BP Pulse Ox 98.1 F 68 19 132/85 92 11/01/17 07:52 11/01/17 07:52 11/01/17 07:52 11/01/17 07:52 11/01/17 07:52 Exam: Gen.: Nonacute distress, alert and oriented 3 ENT: Mucosal membranes moist Respiratory: Lungs are clear to auscultation bilaterally without any wheezing rhonchi or rales Cardiovascular: Normal S1 and S2 regular rate rhythm no murmurs rubs or gallops Abdomen: Soft, nontender and nondistended with positive bowel sounds Extremities: Patient with bilateral lower extremity edema with pitting Skin: Normal color Neurological exam: Patient with slow speech and mentation but does have elevated TSH Cranial nerves 2 through 12 grossly intact Patient without any bilateral upper or lower extremity weakness and sensation intact Patient able to stand with assistance - Assessment and Plan (1) Pericardial effusion without cardiac tamponade Current Visit: Yes Status: Acute Assessment and Plan: Echocardiogram showed moderate pericardial effusion largest along the inferior lateral segments of the left ventricle with no findings of tamponade noted. Cardiology following and appreciate recommendations (2) CHF (congestive heart failure) Current Visit: Yes Status: Acute Assessment and Plan: At [facility], patient was found to have BNP of 20 but has a BMI of 60 and CXR shows questionable pericardial effusion. Patient with bilateral lower extremity edema and reports a significant weight gain. Echocardiogram could not assess left ventricle segments due to body habitus but was noted to have mild left ventricular diastolic dysfunction. Patient was on IV Lasix 80 mg twice daily but will be discontinued per cardiology recommendations due to acute renal failure Cardiology consulted and appreciate any additional recommendations (3) Hypothyroid Current Visit: Yes Status: Acute Assessment and Plan: At [facility], patient was found to have a TSH of 152. She has had a thyroidectomy due to history of thyroid cancer Patient reports that his Synthroid was discontinued due to receiving radiation therapy for history of thyroid cancer Will continue Synthroid 125 g daily Need to consult endocrinology by phone call on 11/02/17 for any additional recommendations (4) Acute renal failure Current Visit: Yes Status: Acute Assessment and Plan: Patient also found to have an elevated creatinine: 1.88->1.96->2.48 Patient does report of being diagnosis with CKD stage 3; no records for baseline creatinine Will discontinue IV diuresis and monitor (5) EtOH dependence Current Visit: Yes Status: Acute Assessment and Plan: Patient reports of drinking approximately a 6 pack per day (6) Diabetes Current Visit: Yes Status: Acute Assessment and Plan: Will obtain A1c; coverage with sliding-scale (7) Mood disorder Current Visit: Yes Status: Acute Assessment and Plan: Continue home medications (8) Thyroid cancer Current Visit: Yes Status: Chronic Assessment and Plan: Patient with history of thyroid cancer status post thyroidectomy and completed radiation Patient following oncologist as an outpatient for monitoring (9) DVT prophylaxis Current Visit: Yes Status: Acute Assessment and Plan: Lovenox subcutaneous - Time Spent with Patient Total time spent is greater than 50% in coordination of care (as documented) at patient's floor/unit and/or counseling patient: Internal Medicine: Result - Labs CBC & Chem 7: 11/01/17 10:27 11/01/17 10:27 - ABG Interpretation ABG results: PT/INR, D-dimer PT 11.2 Seconds (9.4-12.1) 10/30/17 12:49 - Impressions Impressions Echocardiogram 10/31/17 07:00 Impressions: Technically sub-optimal due to body habitus. Many LV segments were not well visualized. In some views, LVEF appeared to be low normal. Grossly, there appeared to be concentric left ventricular hypertrophy. Mild left ventricular diastolic dysfunction. Right ventricle was not well visualized. Normal function noted by tissue Doppler analysis. No pulmonary hypertension identified. RVSP not well obtained due to poor TR jet. Grossly, there appeared to be a moderate pericardial effusion present, largest along the inferolateral segments of the LV. No obvious findings of tamponade noted. Consider a repeat study with Definity contrast for better assessment of LV function. Findings: Study Quality * Technically sub-optimal due to body habitus. ECG Findings * Normal sinus rhythm. Left Ventricle * Many LV segments were not well visualized. In some views, LVEF appeared to be low normal. * Grossly, there appeared to be concentric left ventricular hypertrophy. * Mild left ventricular diastolic dysfunction. Right Ventricle * Right ventricle was not well visualized. Normal function noted by tissue Doppler analysis. Left Atrium * Moderately dilated left atrium. Right Atrium * Mildly dilated right atrium. Aortic Valve * Aortic valve not well visualized. No stenosis or regurgitation noted by Doppler. Mitral Valve * Grossly, mild to moderate mitral annular calcification * No mitral regurgitation. * No mitral stenosis. Tricuspid Valve * Tricuspid valve not well visualized. * Trace tricuspid regurgitation. * No pulmonary hypertension identified. RVSP not well obtained due to poor TR jet. Pulmonic Valve * Pulmonic valve not well visualized. Aorta * Normally sized aortic root. Pericardium * Grossly, there appeared to be a moderate pericardial effusion present, largest along the inferolateral segments of the LV. No obvious findings of tamponade noted. IVC * The IVC is not well evaluated. Pulmonary Artery * Pulmonary artery not well visualized. Brain MRI 10/31/17 10:16 IMPRESSION: Motion degraded study. No acute infarct. Mild chronic microvascular ischemic disease. D/ / 10/31/2017 15:03:08 Bubba Sena MD / gerson Interpreting Provider: Bubba Sena MD Consult Discharge Plan - Plan Referrals: Romeo Ansari [Primary Care Provider] - 11/16/17 2:45 pm Chelle Rothman [Non-Partnered Physician] - (Needs an appointment with in 1-2 weeks of discharge. ) (2) CHF (congestive heart failure) Qualifiers: Heart failure type: unspecified Heart failure chronicity: unspecified Qualified Code(s): I50.9 - Heart failure, unspecified (3) Hypothyroid Qualifiers: Hypothyroidism type: unspecified Qualified Code(s): E03.9 - Hypothyroidism, unspecified (4) Acute renal failure Qualifiers: Acute renal failure type: unspecified Qualified Code(s): N17.9 - Acute kidney failure, unspecified (5) EtOH dependence Qualifiers: Complication of substance-induced condition: uncomplicated (6) Diabetes Qualifiers: Chronic kidney disease stage: unspecified stage
[2017-11-01 11:16] LABS: Basophils # 0.1 K/mcL (0.0-0.2); Basophils % 1.1 %; Eosinophils # 0.3 K/mcL (0.0-0.6); Eosinophils % 3.7 %; Hematocrit 46.2 % (37.5-50.1); Hemoglobin 15.5 g/dL (12.9-16.9); Immature Granulocytes % 0.4 % (0-4); Lymphocytes # 0.8 K/mcL (0.6-4.6); Lymphocytes % 11.3 %; Mean Corpuscular HGB Conc 33.5 g/dL (31.6-35.5); Mean Corpuscular Hemoglobin 32.6 pg (28.0-33.3); Mean Corpuscular Volume 97.3 fL (83.0-100.0); Mean Platelet Volume 9.1 fL (9.4-12.4); Monocytes # 0.5 K/mcL (0.0-1.3); Monocytes % 7.1 %; Neutrophils # 5.4 K/mcL (1.6-8.9); Platelet Count 152 K/mcL (140-400); Red Blood Count 4.75 M/mcL (4.19-5.50); Red Cell Distribution Width 13.1 % (11.5-14.5); Segmented Neutrophils % 76.4 %
[2017-11-01 11:36] LABS: Calcium 9.1 mg/dL (8.6-10.3); Potassium 3.8 mEq/L (3.5-5.1)
[2017-11-01] MEDS ORDERED: Perflutren Lipid Microsphere 1.3 ML in 0.9 % Sodium Chloride 8.7 ML IVP ONE (14:14)
[2017-11-01] MEDS ORDERED: Perflutren Lipid Microsphere 2 ML VIAL ONE (14:24)
--- NOTE | 2017-11-01 15:10 | Electrocardiograph Report ---
[place] [id number] Test Date: 2017-10-30 Pat Name: Santiago Sinclair Department: Room: 3B22 Gender: M Record Center Coordinator: : 1955 Requested By: Kalia Jackson Order Number: [id number] Reading MD: Donavon Dodd Measurements Intervals [place] Rate: 66 P: 4 NH: 201 QRS: 16 QRSD: 101 T: 60 QT: 444 QTc: 466 Interpretive Statements Sinus rhythm Probable anteroseptal infarct, old Electronically Signed On 11-01-2017 15:08:30 EDT by Donavon Dodd
[2017-11-01] MEDS: Furosemide 40 MG/4 ML VIAL IVP SCH (20:55)
[2017-11-02] MEDS: *HR* Enoxaparin 40 MG/0.4 ML SYRINGE SQ SCH (05:33)
[2017-11-02 06:54] LABS: Calcium 9.2 mg/dL (8.6-10.3); Potassium 3.9 mEq/L (3.5-5.1)
--- NOTE | 2017-11-02 08:16 | Cardiology Progress Note ---
Date of Encounter: 11/02/17 Time of Encounter: 08:15 Assessment and Plan (1) Thyroid cancer Current Visit: Yes Status: Chronic Per Cardiology: Per patient history of thyroid cancer and recently completed radiation treatments last week. TSH in the 150s. Further management per primary service- - per discussion with Dr. Green rec endo consult as majority of edema suspect related to endocrine issues. (2) SOB (shortness of breath) Current Visit: Yes Status: Chronic Per Cardiology: Patient with reported history of CHF, however no previous records available for review. BNP = 20. Current chest x-ray showed: IMPRESSION: Stable severe cardiomegaly. Given provided history of CHF, this is likely a chronic finding. A pericardial effusion is considered less likely. ECHO: Impressions: Technically sub-optimal due to body habitus. Many LV segments were not well visualized. In some views, LVEF appeared to be low normal. Grossly, there appeared to be concentric left ventricular hypertrophy. Mild left ventricular diastolic dysfunction. Right ventricle was not well visualized. Normal function noted by tissue Doppler analysis. No pulmonary hypertension identified. RVSP not well obtained due to poor TR jet. Grossly, there appeared to be a moderate pericardial effusion present, largest along the inferolateral segments of the LV. No obvious findings of tamponade noted. Consider a repeat study with Definity contrast for better assessment of LV function. Moderate pericardial effusion with no evidence tamponade. Repeat echo with Definity pending. Suspect multifactorial causes. On Lasix IV 40mg BID-- will stop. Clinically reports improvement, however I&O +654ml? On strict I&O, daily weights, 2 L fluid restriction. Cardiology signing off, f/u with his primary check out clerk. (3) Renal insufficiency Current Visit: Yes Status: Acute Per Cardiology: Chronic CKD versus acute kidney injury-- apparently had CKD3 and follows with Nephrology at outside facility. Previous baseline kidney function unknown area and monitored closely with diuresis. Kidney function worsened. Recommend nephrology consult. Stopping lasix as suspect edema d/t TSH 150's. (4) Dizziness Current Visit: Yes Status: Acute Per Cardiology: Telemetry reviewed with no events noted, sinus rhythm. Head CT showed: IMPRESSION: No acute intracranial abnormality. Discussion w patient/family: The assessment and plan as outlined above was discussed with the patient who expressed understanding and agreement. All questions were answered. Thank you for involving us in the care of your patient. Please call with any questions. Subjective Principal diagnosis: SOB Interval history: Patient reports short of breath and bilateral lower extremity swelling have improved during hospital stay. He does report he follows with a check out clerk, health and fitness professor, and transition advisor in [place]. He does report history of COPD stage III. Apparently, has pending outpatient plan with his own health and fitness professor today. Objective Vital Signs, Last 4 Hours Temp Pulse Resp BP Pulse Ox 11/02/17 08:03 98.2 F 67 19 129/79 99 General: Conversant, No Apparent Distress HEENT: Atraumatic, Normocephaly, Mucus Membranes Moist Neck: No JVD, Normal carotid pulses Cardiac: Reg Rate and Rhythm, Normal S1 and S2, No Murmur Lungs: Normal Breath Sounds, No Wheeze, Rales, Rhonchi Neuro: Alert and responsive, No focal deficits noted Abdomen: Soft, Non-Tender Skin: No rashes noted on visualized skin Musculoskeletal: No Chest Wall Tenderness Extremities: No Clubbing, No Cyanosis, Normal Pulses, Other (generlaized bilater LE edema) Results 11/01/17 10:27 11/02/17 06:12 Lab Results Laboratory Tests 11/02/17 06:12 Creatinine 2.45 H Est GFR (Non-Af Amer) 27 L Impressions Chest X-Ray 11/01/17 09:54 IMPRESSION: Stable severe cardiomegaly. Given provided history of CHF, this is likely a chronic finding. A pericardial effusion is considered less likely. D/ / Christiano Tate MD / Christiano Tate MD Interpreting Provider: Christiano Tate MD Intake & Output 10/30/17 10/31/17 11/01/17 11/02/17 23:59 23:59 23:59 23:59 Intake Total 116 / 116 480 / 480 Balance 58 116 / 116 480 / 480 Weight 149.685 kg 148.5 kg 148.8 kg Active Medications Allopurinol (Zyloprim) 200 mg PO DAILY [facility] Stop: 05/02/18 09:01 Last Admin: 11/01/17 08:13 Dose: 200 mg Amlodipine Besylate (Norvasc) 10 mg PO DAILY [facility] Stop: 05/02/18 09:01 Last Admin: 11/01/17 08:13 Dose: 10 mg Carvedilol (Coreg) 12.5 mg PO BIDWM [facility] PRN Reason: Protocol Stop: 05/02/18 17:01 Last Admin: 11/01/17 18:10 Dose: 12.5 mg Clobetasol Propionate (Temovate 0.05%) 1 appl TP SUSA [facility] Stop: 05/01/18 17:46 Last Admin: 10/31/17 16:55 Dose: Not Given Colchicine (Colcrys) 0.6 mg PO BID [facility] Stop: 05/01/18 21:01 Last Admin: 11/01/17 20:54 Dose: 0.6 mg Dextrose/Water (Dextrose 50% (Syg)) 25 ml IVP AD PRN PRN Reason: Hypoglycemia Stop: 05/02/18 17:15 Enoxaparin Sodium (Lovenox) 40 mg SQ 0600 [facility] PRN Reason: Protocol Stop: 05/02/18 10:31 Last Admin: 11/02/17 05:33 Dose: 40 mg Furosemide (Lasix) 40 mg IVP BID [facility] Stop: 05/03/18 21:01 Last Admin: 11/01/17 20:55 Dose: 40 mg Glucagon (Glucagen) 1 mg IM ONCE PRN PRN Reason: Hypoglycemia Stop: 05/02/18 17:15 Glucose (Gluctose) 15 gm PO ONCE PRN PRN Reason: Hypoglycemia Stop: 05/02/18 17:15 Glucose (Gluctose) 30 gm PO ONCE PRN PRN Reason: Hypoglycemia Stop: 05/02/18 17:15 Dextrose (Dextrose 5%) 1,000 mls @ 100 mls/hr IVC .Q10H PRN PRN Reason: HYPOGLYCEMIA Stop: 05/02/18 17:15 Insulin Human Lispro (Humalog) 0 units SQ HS [facility] PRN Reason: Protocol Stop: 05/02/18 21:01 Last Admin: 11/01/17 20:56 Dose: 2 units Insulin Human Lispro (Humalog) 0 units SQ TIDAC [facility] PRN Reason: Protocol Stop: 05/03/18 07:31 Last Admin: 11/01/17 16:59 Dose: 2 units Levothyroxine Sodium (Synthroid) 125 mcg PO DAILY@0630 [facility] Stop: 05/02/18 06:31 Last Admin: 11/02/17 05:33 Dose: 125 mcg Naloxone HCl (Narcan) 0.4 mg IVP Q2MIN PRN PRN Reason: SEE COMMENTS Stop: 05/01/18 17:38 Paroxetine HCl (Paxil) 40 mg PO DAILY [facility] Stop: 05/02/18 09:01 Last Admin: 11/01/17 08:13 Dose: 40 mg Pharmacy Profile Note (Patient Taking Own Medication) 5 each PO DAILY [facility] Stop: 05/02/18 09:01 Last Admin: 11/01/17 08:13 Dose: Not Given Rosuvastatin Calcium (Crestor) 20 mg PO HS [facility] Stop: 05/01/18 21:01 Last Admin: 11/01/17 20:54 Dose: 20 mg Tamsulosin HCl (Flomax) 0.4 mg PO DAILY [facility] PRN Reason: Protocol Stop: 05/02/18 09:01 Last Admin: 11/01/17 08:12 Dose: 0.4 mg Vitamin D (Vitamin D) 5,000 unit PO DAILY [facility] Stop: 05/02/18 09:01 Last Admin: 11/01/17 08:13 Dose: 5,000 unit - Imaging and Cardiology Chest Xray: report reviewed Echo: pending, report reviewed Consult Discharge Plan - Plan Referrals: Romeo Ansari [Primary Care Provider] - 11/16/17 2:45 pm Chelle Rothman [Non-Partnered Physician] - (Needs an appointment with in 1-2 weeks of discharge. )
[2017-11-02] MEDS: Cholecalciferol (D-3) 1,000 UNIT TABLET PO SCH (08:37)
[2017-11-02] MEDS: Insulin LISPRO 300 UNITS/3 ML VIAL SQ SCH ×2 (08:37→12:41)
[2017-11-02] MEDS: Furosemide 40 MG/4 ML VIAL IVP SCH (08:37)
[2017-11-02] MEDS: Colchicine 0.6 MG TABLET PO SCH (08:38)
[2017-11-02] MEDS: amLODIPine 5 MG TABLET PO SCH (08:38)
[2017-11-02 12:12] VITALS: BP 133/76
--- NOTE | 2017-11-02 16:30 | Internal Med Progress Note ---
Hospitalist Progress Note - Encounter Date of Encounter: 11/02/17 Time of Encounter: 16:29 - Subjective Interval History: Attempted see the patient at bedside today however, patient declined assessment. He did state that he is feeling much better than arrival and verbalized that he is going to discharge AGAINST MEDICAL ADVICE. Please see event note - Exam Vitals: Temp Pulse Resp BP Pulse Ox 98.3 F 67 18 133/76 93 11/02/17 12:10 11/02/17 12:10 11/02/17 12:10 11/02/17 12:10 11/02/17 12:10 Exam: Patient declined physical exam - Assessment and Plan (1) CHF (congestive heart failure) Current Visit: Yes Status: Acute (2) Acute renal failure Current Visit: Yes Status: Acute (3) Hypothyroid Current Visit: Yes Status: Acute (4) EtOH dependence Current Visit: Yes Status: Acute (5) Diabetes Current Visit: Yes Status: Acute (6) Mood disorder Current Visit: Yes Status: Acute (7) DVT prophylaxis Current Visit: Yes Status: Acute (8) Thyroid cancer Current Visit: Yes Status: Chronic (9) Pericardial effusion without cardiac tamponade Current Visit: Yes Status: Acute - Summary of Assessment and Plan Summary of Assessment and Plan: Patient is a 8-year-old male with a PMH significant for CHF, CKD 3, HTN, DM, hypothyroidism, thyroid cancer, and mood disorder. He presented to [facility]17 due to heart failure and uncontrolled hypothyroidism. Additionally on presentation he was short of breath secondary to CHF. The patient reports that he has recently undergone radiation therapy for thyroid cancer follow-up approximately 3-4 weeks ago. He reports that 3-4 weeks prior to that time he was told by his air conditioning specialist to quit taking his thyroid medication. In essence he has been without his thyroid medication for the last 6-8 weeks prompting his hypothyroid picture upon arrival. This likely contributed to eat fluid overload as well resulting in shortness of breath. During the stay he was diuresed and subsequently developed worsening renal function. Attempted to see the patient at bedside today, during my assessment the patient informed me that he was leaving the hospital "one way or another". I discussed with patient the fact that I thought with worsening renal function he was not yet ready for discharge patient remain inpatient for further monitoring of renal function. Additionally, I informed the patient that he would benefit from endocrinology consult as well as further monitoring since we only just restarted his levothyroxine during this admission. The patient stated that he would rather see his primary care team who is familiar with this case. I informed the patient that I did not feel he is medically stable for discharge. The patient informed me that he wishes to proceed with discharge AGAINST MEDICAL ADVICE. He was informed that if he discharges medical advice he could have worsening renal function and further problems with his thyroid and or further hospitalization, further morbidity mortality and/or . The patient verbalizes understanding and wishes to proceed to discharge AGAINST MEDICAL ADVICE - Time Spent with Patient Total time spent is greater than 50% in coordination of care (as documented) at patient's floor/unit and/or counseling patient: less than 15 minutes Plan of Care Discussed with: patient Internal Medicine: Result - Labs CBC & Chem 7: 11/01/17 10:27 11/02/17 06:12 Labs: BMP 11/02/17 06:12 Sodium 139 Potassium 3.9 Chloride 98 Carbon Dioxide 32 H BUN 47 H Creatinine 2.45 H Glucose 171 H Calcium 9.2 - ABG Interpretation ABG results: PT/INR, D-dimer PT 11.2 Seconds (9.4-12.1) 10/30/17 12:49 Consult Discharge Plan - Plan Referrals: Romeo Ansari [Primary Care Provider] - 11/16/17 2:45 pm Chelle Rothman [Non-Partnered Physician] - (Needs an appointment with in 1-2 weeks of discharge. ) (1) CHF (congestive heart failure) Qualifiers: Heart failure type: unspecified Heart failure chronicity: unspecified Qualified Code(s): I50.9 - Heart failure, unspecified (2) Acute renal failure Qualifiers: Acute renal failure type: unspecified Qualified Code(s): N17.9 - Acute kidney failure, unspecified (3) Hypothyroid Qualifiers: Hypothyroidism type: unspecified Qualified Code(s): E03.9 - Hypothyroidism, unspecified (4) EtOH dependence Qualifiers: Complication of substance-induced condition: uncomplicated (5) Diabetes Qualifiers: Chronic kidney disease stage: unspecified stage
--- NOTE | 2017-11-04 17:40 | Discharge Summary ---
Date of Encounter: 11/02/17 Time of Encounter: 16:24 - Discharge Diagnosis (1) CHF (congestive heart failure) Priority: Primary Status: Acute Qualifiers: Heart failure type: unspecified Heart failure chronicity: unspecified Qualified Code(s): I50.9 - Heart failure, unspecified (2) Acute renal failure Priority: Secondary Status: Acute Qualifiers: Acute renal failure type: unspecified Qualified Code(s): N17.9 - Acute kidney failure, unspecified (3) Hypothyroid Priority: Secondary Status: Acute Qualifiers: Hypothyroidism type: unspecified Qualified Code(s): E03.9 - Hypothyroidism , unspecified (4) EtOH dependence Priority: Secondary Status: Acute Qualifiers: Substance use status: unspecified alcohol-induced disorder Qualified Code(s ): F10.29 - Alcohol dependence with unspecified alcohol-induced disorder (5) Diabetes Priority: Secondary Status: Acute Qualifiers: Chronic kidney disease stage: unspecified stage Qualified Code(s): E08.22 - Diabetes mellitus due to underlying condition with diabetic chronic kidney disease; Z79.4 - retirement (current) use of insulin (6) Mood disorder Priority: Secondary Status: Acute (7) DVT prophylaxis Priority: Secondary Status: Acute (8) Thyroid cancer Priority: Secondary Status: Chronic (9) Pericardial effusion without cardiac tamponade Priority: Secondary Status: Acute Hospital course: Mr. Sinclair is a 62 year old male Patient is a 8-year-old male with a PMH significant for CHF, CKD 3, HTN, DM, hypothyroidism, thyroid cancer, and mood disorder. He presented to [facility] due to heart failure and uncontrolled hypothyroidism. Additionally on presentation he was short of breath secondary to CHF. The patient reports that he has recently undergone radiation therapy for thyroid cancer follow-up approximately 3-4 weeks ago. 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 In essence he has been without his thyroid medication for the last 6-8 weeks prompting his hypothyroid picture upon arrival. This likely contributed to eat fluid overload as well resulting in shortness of breath. During the stay he was diuresed and subsequently developed worsening renal function. Attempted to see the patient at bedside today, during my assessment the patient informed me that he was leaving the hospital "one way or another". I discussed with patient the fact that I thought with worsening renal function he was not yet ready for discharge patient remain inpatient for further monitoring of renal function. Additionally, I informed the patient that he would benefit from endocrinology consult as well as further monitoring since we only just restarted his levothyroxine during this admission. The patient stated that he would rather see his primary care team who is familiar with this case. I informed the patient that I did not feel he is medically stable for discharge. The patient informed me that he wishes to proceed with discharge AGAINST MEDICAL ADVICE. He was informed that if he discharges medical advice he could have worsening renal function and further problems with his thyroid and or further hospitalization, further morbidity mortality and/or . The patient verbalizes understanding and wishes to proceed to discharge AGAINST MEDICAL ADVICE Discharge discussed with: patient - Time Spent with Patient Total time spent providing and/or coordinating discharge services: Less than 30 minutes - Discharge Medications Home Medications: Allopurinol [Zyloprim 100 MG] 200 mg PO DAILY 10/30/17 [History] Amlodipine Besylate 10 mg PO DAILY 10/30/17 [History] Carvedilol [Coreg] 6.25 mg PO BIDWM 10/30/17 [History] Cholecalciferol (D-3) [Vitamin D] 5,000 unit PO DAILY 10/30/17 [History] Clobetasol Propionate [Temovate] 1 appl TP SUSA 10/30/17 [History] Colchicine [Mitigare] 0.6 mg PO BID 10/30/17 [History] Doxycycline Hyclate 100 mg PO MOWEFR 10/30/17 [History] Furosemide [Lasix] 20 mg PO BID 10/30/17 [History] Furosemide [Lasix] 40 mg PO BID 10/30/17 [History] Linagliptin [Tradjenta] 5 mg PO DAILY 10/30/17 [History] Paroxetine HCl [Paxil] 40 mg PO DAILY 10/30/17 [History] Rosuvastatin [Crestor] 20 mg PO HS 10/30/17 [History] Tamsulosin [Flomax] 0.4 mg PO DAILY 10/30/17 [History] Allergies/Adverse Reactions: 3 Allergy/AdvReac Type Severity Reaction Status Date / Time No Known Allergies Allergy Verified 10/30/17 12:34 Date of admission: 10/30/17 17:37 Primary care physician: Romeo Ansari Consults: 10/30/17 17:40 Consult to Cardiology [CONS] Routine Comment: Consulting Provider: Cardiology Roxanne Reason for Consult: Heart failure Call Completed: Yes Discharging clinician: Jared Gonzalez Anticipated date of discharge: 11/04/17 - Constitutional Vitals: Temp Pulse Resp BP Pulse Ox 98.3 F 67 18 133/76 93 11/02/17 12:10 11/02/17 12:10 11/02/17 12:10 11/02/17 12:10 11/02/17 12:10 General appearance: Present: A&O X 3, no acute distress Exam: Patient declined physical exam - Patient Status Disposition: Left Against Medical Advice Condition: Fair - Discharge Instructions Follow Up With: Romeo Ansari [Primary Care Provider] - 11/16/17 2:45 pm Chelle Rothman [Non-Partnered Physician] - (Needs an appointment with in 1-2 weeks of discharge. )
== END 2017-11-02 16:16 | disposition left against medical advice (07) | DRG 292 ==
LOC: 3BNU 11:37 → EMEROOARM 11:37 → 3BNU 14:43 → SUATTDRO 17:37
PROVIDERS: ADMIT Internal Medicine; ATTEND Hospitalist